=== PATIENT | female | born 1980 | race Hispanic/Latino ===

== ENCOUNTER 2017-04-01 14:16 | Outpatient (CLI) | payer OTHER ==
--- NOTE | 2017-04-01 16:04 | ULT ---
OBSTETRIC SONOGRAM 04/01/17 HISTORY: Second trimester . evaluation. FINDINGS: Multiple transabdominal sonographic views of the gravid uterus show a single intrauterine gestation i n a cephalic presentation. The cervix is covered and 4.2 cm in length. Amniotic fluid is within gavino l limits. Grade 0 placenta is posterior. spine and kidneys are intact as visualized. No gross i ntracranial abnormalities are apparent. Three vessel cord shows a normal insertion. Four chamber heart shows motion at 128 beats per minute. Measurements are as follows: Biparietal diameter 26 weeks, 2 days Head circumference 26 weeks, 2 days Abdominal circumference 26 weeks, 2 days Femur length 26 weeks, 5 days Estimated date of delivery based on today's sonogram is 07/05/17. Hadlock percentile equals 49%. IMPRESSION: Single viable intrauterine gestation with estimated gestational age based on today's sonogram of 26 w eeks, 3 days. POS: [facility]
== END 2017-04-01 14:17 | disposition home or self-care (01) ==
LOC: ULT 14:16
PROVIDERS: ATTEND Nurse Practitioner
DX: O09.92 Supervision of high risk pregnancy, unspecified, second trimester (principal); Z3A.26 26 weeks gestation of pregnancy
CPT/HCPCS: 76805